=== PATIENT | male | born 1965 | race Caucasian/White ===

== ENCOUNTER 2019-06-23 22:05 | Emergency (ER) | payer OTHER ==
[~2019-06-23] VITALS: Ht 182.9 cm; Wt 96.4 kg
[2019-06-23] MEDS ORDERED: SIMV20TA22 PO (22:22)
[2019-06-23] MEDS ORDERED: LISI-542 PO (22:22)
[2019-06-23] MEDS ORDERED: VERA300C6 PO (22:22)
[2019-06-23] MEDS ORDERED: DEXI60CA2 PO (22:22)
[2019-06-23 22:27] LABS: BASO # 0.1 10^3/uL (0.0-0.2); EOS # 0.5 10^3/uL (0.0-0.5); EOS % 5.3 % (0.0-3.0); HEMATOCRIT 44.8 % (42.0-52.0); HEMOGLOBIN 15.4 g/dl (13.5-17.5); LYMPH # 3.4 10^3/uL (1.5-5.0); MEAN CORPUSCULAR HEMOGLOBIN 31.2 pg (27.0-33.0); MEAN CORPUSCULAR HGB CONC 34.4 g/dl (32.0-36.5); MEAN CORPUSCULAR VOLUME 90.7 fl (80.0-96.0); MONO # 0.8 10^3/uL (0.0-0.8); MONO % 8.8 % (0.0-5.0); NEUTROPHILS # 4.5 10^3/uL (1.5-8.5); PLATELET COUNT, AUTOMATED 248 10^3/uL (150-450); RED BLOOD COUNT 4.94 10^6/uL (4.30-6.10); WHITE BLOOD COUNT 9.4 10^3/uL (4.0-10.0)
[2019-06-23] MEDS ORDERED: ISOVUE-370 76% 100ML VIAL (Q9967) As Ordered ONE (22:32)
[2019-06-23 22:41] LABS: PROTHROMBIN TIME 12.9 SECONDS (11.8-14.0)
[2019-06-23 22:50] LABS: ALBUMIN 4.2 GM/DL (3.2-5.2); ALT/SGPT 45 U/L (12-78); BILIRUBIN,DIRECT 0.1 MG/DL (0.0-0.2); BILIRUBIN,TOTAL 0.4 MG/DL (0.2-1.0); CK-MB VALUE MASS 1.2 NG/ML (<3.6); CPK CREATINE PHOSPHOKINASE 132 U/L (39-308); LIPASE 168 U/L (73-393); MB/CK RELATIVE INDEX 0.91 (< OR =4); TOTAL PROTEIN 7.6 GM/DL (6.4-8.2); TROPONIN I < 0.02 NG/ML (< 0.10)
[2019-06-24] MEDS ORDERED: ALPRAZolam 0.5 MG TAB PO ONE (00:45)
[2019-06-24] MEDS ORDERED: NS 1,000 ML IV ONE (00:45)
[2019-06-24 01:47] LABS: CK-MB VALUE MASS 1.2 NG/ML (<3.6); CPK CREATINE PHOSPHOKINASE 124 U/L (39-308); MB/CK RELATIVE INDEX 0.97 (< OR =4); TROPONIN I < 0.02 NG/ML (< 0.10)
[2019-06-24] MEDS ORDERED: AUGMENTIN 875 MG TAB PO ONE (02:00)
[2019-06-24 02:57] VITALS: BP 143/84
[2019-06-24] MEDS ORDERED: AUGM500T34 PO (03:04)
--- NOTE | 2019-06-24 06:29 | ECGEPIP ---
[facility] - ED Test Date: 2019-06-23 Pat Name: SOFYA REYNAGA Department: Room: - Gender: Male Guide Excursion: KK : 1965 Requested By: VIVIANE RUSSELL Order Number: [id number] Reading MD: Ambrose Yo Measurements Intervals [place] Rate: 73 P: 73 [place]: 192 QRS: 16 QRSD: 105 T: 51 QT: 364 QTc: 403 Interpretive Statements SINUS RHYTHM BASELINE ARTIFACT MAY AFFECT READING NONSPECIFIC ST T WAVE CHANGES NO PRIOR ECG FOR COMPARISON Electronically Signed on 06-24-2019 6:29:20 EDT by Ambrose Yo
--- NOTE | 2019-06-24 08:42 | REP ---
Portable chest x-ray: Single view. History: Chest pain. Comparison chest x-ray: January 12, 2005. Findings: Monitoring electrodes are visible along with oxygen delivery tubing. The lungs are well inflated and clear. The pleural angles are sharp. The heart is not enlarged. Pulmonary vasculature is not increased. No significant bony abnormality is appreciated. Impression: No acute disease. Electronically Signed by Bryant Velazquez MD 06/24/2019 08:34 A
== END 2019-06-24 03:09 | disposition home or self-care (01) ==
LOC: M ED 22:05 → EDBD 22:05 → M ED 06-24 03:09
DX: R00.2 Palpitations (principal); R42 Dizziness and giddiness; R07.89 Other chest pain; K04.7 Periapical abscess without sinus; R06.02 Shortness of breath; I10 Essential (primary) hypertension; E78.5 Hyperlipidemia, unspecified; J45.909 Unspecified asthma, uncomplicated; Z88.7 Allergy status to serum and vaccine; Z79.899 Other long term (current) drug therapy
CPT/HCPCS: 71045; 71275; 80047; 80076; 82550; 82553; 83690; 84484; 85025; 85610; 93005; 93041; 94760; 96360; 96361; 99285; Q9967

== ENCOUNTER → 2019-07-26 | Outpatient (CLI) | payer OTHER ==
[~2019-07-26] MED LIST: AUGM500T34 PO; DEXI60CA2 PO; LISI-542 PO; SIMV20TA22 PO; VERA300C6 PO
[2019-07-26 13:07] LABS: BLOOD UREA NITROGEN 12 MG/DL (7-18); CREATININE FOR GFR 0.99 MG/DL (0.70-1.30); GLOMERULAR FILTRATION RATE > 60.0 (>56); GLUCOSE, FASTING 106 MG/DL (70-100)
[2019-07-26 13:08] LABS: ALBUMIN 4.2 GM/DL (3.2-5.2); CALCIUM LEVEL 9.3 MG/DL (8.5-10.1); CARBON DIOXIDE LEVEL 30 MEQ/L (21-32); CHLORIDE LEVEL 105 MEQ/L (98-107); MAGNESIUM LEVEL 2.1 MG/DL (1.8-2.4); NT-PRO BNP 6 PG/ML (<125); PHOSPHORUS LEVEL 3.2 MG/DL (2.5-4.9); POTASSIUM SERUM 4.3 MEQ/L (3.5-5.1); SODIUM LEVEL 141 MEQ/L (136-145)
== END ==
LOC: M WUC 10:50
PROVIDERS: ATTEND Internal Medicine Cardiovascular Disease
DX: I10 Essential (primary) hypertension (principal)

== ENCOUNTER 2019-11-25 00:52 | Emergency (ER) | payer OTHER ==
[~2019-11-25] VITALS: Ht 182.9 cm; Wt 100.9 kg
[2019-11-25] MEDS ORDERED: ALBU83IN INH (01:01)
--- NOTE | 2019-11-25 01:48 | REPVR ---
PROCEDURE INFORMATION: Exam: XR Right Hand Exam date and time: 11/25/2019 1:37 AM Age: 54 years old Clinical indication: Injury or trauma; Injury history: Fell; Initial encounter; Swelling (edema); Hand; Right TECHNIQUE: Imaging protocol: XR Right hand. Views: 3 or more views. COMPARISON: No relevant prior studies available. FINDINGS: Bones/joints: Acute angulated fracture the proximal 5th metacarpal metadiaphysis. Soft tissues: Normal. IMPRESSION: Acute angulated fracture the proximal 5th metacarpal metadiaphysis. Electronically signed by: Az Lutz On 11/25/2019 01:47:47 AM
--- NOTE | 2019-11-25 01:49 | REPVR ---
PROCEDURE INFORMATION: Exam: XR Right Toe(s) Exam date and time: 11/25/2019 1:37 AM Age: 54 years old Clinical indication: Injury or trauma; Injury history: Fell; Initial encounter; Sprain or strain; Foot; Right TECHNIQUE: Imaging protocol: XR Right toes. Views: Minimum 2 views. COMPARISON: No relevant prior studies available. FINDINGS: Bones/joints: Normal. Soft tissues: Normal. IMPRESSION: No acute findings. Electronically signed by: Az Lutz On 11/25/2019 01:49:02 AM
[2019-11-25 02:44] VITALS: BP 145/73
[2019-11-25] MEDS ORDERED: OXYCODONE/APAP 5MG/325MG(BULK FOR ED) 1 TABLET PO ONE (02:45)
== END 2019-11-25 02:45 | disposition home or self-care (01) ==
LOC: M ED 00:52
DX: S62.306A Unspecified fracture of fifth metacarpal bone, right hand, initial encounter for closed fracture (principal); S90.411A Abrasion, right great toe, initial encounter; W10.1XXA Fall (on)(from) sidewalk curb, initial encounter; Y92.480 Sidewalk as the place of occurrence of the external cause; Y99.0 Civilian activity done for income or pay; I10 Essential (primary) hypertension; Z88.7 Allergy status to serum and vaccine; Z79.51 Long term (current) use of inhaled steroids; Z79.899 Other long term (current) drug therapy

== ENCOUNTER → 2021-10-30 | Outpatient (CLI) | payer OTHER ==
[~2021-10-30] MED LIST changes: +ALBU2.5V10 INH; -LISI-542 PO; +LISI5TAB11 PO
== END ==
LOC: M RAD 06:47
PROVIDERS: ATTEND Family Medicine
DX: E04.1 Nontoxic single thyroid nodule (principal)